=== PATIENT | female | born 1940 | race Caucasian/White ===

== ENCOUNTER → 2016-09-17 | Outpatient (CLI) | payer OTHER, MEDICARE | LOC: FIMAGING 13:46 | DX: Z12.31 Encounter for screening mammogram for malignant neoplasm of breast (principal); Z80.3 Family history of malignant neoplasm of breast | CPT/HCPCS: G0202 ==

== ENCOUNTER 2017-03-10 20:22 | Inpatient (IN) | payer OTHER, MEDICARE ==
[2017-03-10] MEDS ORDERED: NS 1,000 ML IV ONE ×2 (21:03)
[2017-03-10] MEDS ORDERED: HYDROmorphONE/DILAUDID 1 MG/ML INJ IVP ONE (21:03)
[2017-03-10] MEDS ORDERED: ONDANSETRON 4 MG/2 ML VIAL IVP ONE (21:03)
--- NOTE | 2017-03-10 21:08 | EDPHY ---
H & P Stated Complaint: abd pain vomiting recent travel oo country Time Seen by Provider: 03/10/17 20:51 HPI/ROS: CHIEF COMPLAINT: Abdominal pain and vomiting HISTORY OF PRESENT ILLNESS: The patient is a 77-year-old female who comes to the emergency department complaining of nausea vomiting and abdominal pain primarily epigastric region for the last week. She spent December in [place] and took antimalarial medications. She spent a week in January in [place]. She has been back now for 3 weeks. She has not had a fever. No diarrhea. She cannot remember when she last passed gas but her last bowel movement was 3 days ago. No history of abdominal surgeries. She does not feel bloated. She does feel slightly lightheaded no chest pain or shortness of breath. She has seen her primary 3 times this week. She took Zofran this afternoon with minimal improvement. She had initially been placed on Pepcid with no improvement. No blood in her vomit. REVIEW OF SYSTEMS: Constitutional: denies: chills, fever, recent illness, recent injury EENTM: denies: blurred vision, double vision, nose congestion Respiratory: denies: cough, shortness of breath Cardiac: denies: chest pain, irregular heart rate, lightheadedness, palpitations Gastrointestinal/Abdominal: See HPI Genitourinary: denies: dysuria, frequency, hematuria, pain Musculoskeletal: denies: joint pain, muscle pain Skin: denies: lesions, rash, jaundice, bruising Neurological: denies: headache, numbness, paresthesia, tingling, dizziness, weakness Hematologic/Lymphatic: denies: blood clots, easy bleeding, easy bruising Immunologic/allergic: denies: HIV/AIDS, transplant EXAM: GENERAL: Well-appearing, well-nourished and in no acute distress. HEAD: Atraumatic, normocephalic. EYES: Pupils equal round and reactive to light, extraocular movements intact, sclera anicteric, conjunctiva are normal. ENT: TMs normal, nares patent, oropharynx clear without exudates. Moist mucous membranes. NECK: Normal range of motion, supple without lymphadenopathy or JVD. LUNGS: Breath sounds clear to auscultation bilaterally and equal. No wheezes rales or rhonchi. HEART: Regular rate and rhythm without murmurs, rubs or gallops. ABDOMEN: No acute tenderness and a palpable pulsations of her aorta. BACK: No CVA tenderness, no spinal tenderness, step-offs or deformities EXTREMITIES: Normal range of motion, no pitting or edema. No clubbing or cyanosis. NEUROLOGICAL: Cranial nerves II through XII grossly intact. Normal speech, normal gait. 5/5 strength, normal movement in all extremities, normal sensation PSYCH: Normal mood, normal affect. SKIN: Warm, dry, normal turgor, no visible rashes or lesions. Source: Patient Exam Limitations: No limitations - Personal History Current Tetanus/Diphtheria Vaccine: Yes Current Tetanus Diphtheria and Acellular Pertussis (TDAP): Yes Tetanus Vaccine Date: <10 YRS - Medical/Surgical History Hx Asthma: No Hx Chronic Respiratory Disease: No Hx Diabetes: No Hx Cardiac Disease: No Hx Renal Disease: No Hx Cirrhosis: No Hx Alcoholism: No Hx HIV/AIDS: No Hx Splenectomy or Spleen Trauma: No Other PMH: previous CHI 5 yrs ago - Family History Significant Family History: No pertinent family hx - Social History Smoking Status: Never smoked Alcohol Use: Sober Drug Use: None Constitutional: Initial Vital Signs Temperature (C) 36.8 C 03/10/17 20:35 Heart Rate 65 03/10/17 20:35 Respiratory Rate 18 03/10/17 20:35 Blood Pressure 179/84 H 03/10/17 20:35 O2 Sat (%) 95 03/10/17 20:35 O2 Delivery Mode Nasal Cannula,Bag Valve Mask O2 (L/minute) 2 Allergies/Adverse Reactions: No Allergies [NKDA] Allergy (Verified 01/17/13 14:12) SEASONAL Allergy (Intermediate, Uncoded 01/17/13 14:18) SNEEZY, ITCHY EYES, Home Medications: Medication Instructions Recorded Aspirin [Aspirin 81mg (*)] 81 mg PO HS 12/05/13 Losartan Potassium [Cozaar 50 mg 50 mg PO DAILY 03/10/17 (*)] Omeprazole [Prilosec 20 mg] 20 mg PO DAILY 03/10/17 Estradiol/Norethindrone Acet 1 each TD Q3D 03/11/17 [Combipatch 0.05-0.14 mg Ptch] Ondansetron Odt [Zofran Odt 4 mg 4 mg PO DAILY PRN 03/11/17 (*)] Medical Decision Making - Diagnostics Imaging Results: Imaging Impressions Chest X-Ray 03/10/17 23:29 Impression: Status post placement of a right IJ central venous catheter terminating over the distal SVC, with no evidence of postprocedure pneumothorax. Procedures: Study: Limited bedside Ultrasound of the: Aorta Indication: Abdominal pain with palpable pulsation Results: US scan of the aorta was obtained. The results of the study are negative for aneurysm. The study was performed and read by the co Procedure: Ultrasound guidance: Using the linear probe covered in a sterile sheath, a short axis of the vein was obtained. The vein was completely compressible and was identified as separate from the adjacent non-compressible arterial structure. Under real-time guidance, the introducer needle was observed up to the vein, and then punctured it. These images were saved on the database. Central line placement: The indication for the procedure was potassium repletion. After verbal informed consent from patient; the risks were explained including bleeding, infection, and collapsed lung. Maximal sterile barrier technique was uses including cap, gown, sterile gloves, large sheet, hand washing and chlorhexidine prep. The area anesthetized with 1% lidocaine. The right IJ was punctured with a 19 gauge finder needle, then a wire introducer was placed, a triple-lumen was placed using Seldinger technique. There were no complications. Blood return low pressure, dark blood. The patient tolerated procedure well. CXR results: Good placement as interpreted by myself. Radiologist interpretation is pending. The procedure was performed by myself. ED Course/Re-evaluation: The patient is hypokalemic and hyponatremic. I will treat her with potassium and order an EKG. We will hold any more fluids. She received a L on arrival. 10:20 p.m. repeat I-STAT potassium is 2.0. I do not know if this is reliable. We will immediately repeat a new BMP especially considering the patient's hyponatremia and L of fluids given. Will admit to the ICU. I spoke with Dr. Bedolla requests that we consult renal and attempt to have a PICC line placed. 10:45 p.m. I discussed the case with Nephrology Dr. Gonzalez. She will page the hospitalist and discussed treatment plan with them. Repeat BMP shows decreased potassium and slightly increased sodium. I will place a central line for potassium repletion. 10:55 p.m. I discussed the case with Leatha Bedoya who will admit the patient primarily and would like to Dr. Bedolla. 11:[address] Bedoya is here evaluating the patient and nephrology is on the way. Critical Care Time: Critical care time spent by me, Dr. Miles exclusive with this patient was 35 minutes, exclusive of the PA time exclusive of procedures. The organ system that was at risk was cardiovascular and I gave IV fluids, consultation, workup and central line placement to prevent worsening of the patient's condition - Data Points Laboratory Results: Laboratory Results 03/10/17 21:08 03/10/17 22:15 Medications Given: Losartan Potassium (Cozaar) 25 mg PO DAILY SOPHIA Stop: 09/07/17 11:29 Last Admin: 03/11/17 12:31 Dose: 25 mg Ondansetron HCl (Zofran Odt) 4 mg PO Q4HRS PRN PRN Reason: Nausea/Vomiting, Use 1st Stop: 09/07/17 00:09 Last Admin: 03/11/17 09:53 Dose: 4 mg Discontinued Medications Hydromorphone HCl (Dilaudid) 1 mg IVP EDNOW ONE Stop: 03/10/17 21:04 Last Admin: 03/10/17 21:15 Dose: 1 mg Sodium Chloride (Ns) 1,000 mls @ 0 mls/hr IV EDNOW ONE; Wide Open PRN Reason: Protocol Stop: 03/10/17 21:04 Last Admin: 03/10/17 21:11 Dose: 1,000 mls Sodium Chloride (Ns) 1,000 mls @ 0 mls/hr IV EDNOW ONE; Wide Open PRN Reason: Protocol Stop: 03/10/17 21:04 Last Admin: 03/10/17 22:05 Dose: 1,000 mls Potassium Chloride (Potassium Cl 10 Meq (Premix)) 100 mls @ 100 mls/hr IV EDNOW ONE Stop: 03/10/17 22:48 Last Admin: 03/10/17 22:10 Dose: 100 mls Potassium Chloride (Potassium Cl 20 Meq (Premix)) 50 mls @ 25 mls/hr IV EDNOW ONE Stop: 03/11/17 01:29 Last Admin: 03/10/17 23:44 Dose: 50 mls Potassium Chloride (Potassium Cl 10 Meq (Premix)) 50 mls @ 50 mls/hr IV ONCE ONE Stop: 03/11/17 02:44 Last Admin: 03/11/17 01:55 Dose: 50 mls Magnesium Sulfate (Magnesium Sulf 2 Gm (Premix)) 50 mls @ 50 mls/hr IV ONCE ONE Stop: 03/11/17 03:29 Last Admin: 03/11/17 02:23 Dose: 50 mls Potassium Chloride (Potassium Cl 10 Meq (Premix)) 50 mls @ 50 mls/hr IV ONCE ONE Stop: 03/11/17 04:14 Last Admin: 03/11/17 03:15 Dose: 50 mls Potassium Chloride (Potassium Cl 10 Meq (Premix)) 50 mls @ 50 mls/hr IV ONCE ONE Stop: 03/11/17 05:59 Last Admin: 03/11/17 04:51 Dose: 50 mls Desmopressin Acetate 2 mcg/ (Sodium Chloride) 50.5 mls @ 100 mls/hr IV ONCE ONE Stop: 03/11/17 07:46 Last Admin: 03/11/17 08:28 Dose: 50.5 mls Potassium Chloride (Potassium Cl 10 Meq (Premix)) 50 mls @ 50 mls/hr IV ONCE ONE Stop: 03/11/17 10:59 Last Admin: 03/11/17 08:45 Dose: 50 mls Lorazepam (Ativan) 0.5 mg PO ONCE ONE Stop: 03/11/17 04:16 Last Admin: 03/11/17 04:14 Dose: 0.5 mg Metoclopramide HCl (Reglan Injection) 10 mg IVP EDNOW ONE Stop: 03/10/17 21:51 Last Admin: 03/10/17 22:12 Dose: 10 mg Ondansetron HCl (Zofran) 8 mg IVP EDNOW ONE Stop: 03/10/17 21:04 Last Admin: 03/10/17 21:15 Dose: 8 mg Potassium Chloride (Klor-Con) 40 meq PO ONCE ONE Stop: 03/11/17 10:16 Last Admin: 03/11/17 10:42 Dose: 40 meq Potassium Chloride (Klor-Con) 40 meq PO ONCE ONE Stop: 03/11/17 14:01 Last Admin: 03/11/17 14:13 Dose: 40 meq Departure - Departure Disposition: [facility] Inpatient Acute Clinical Impression: Hyponatremia, Hypokalemia Condition: Critical
[2017-03-10 21:31] LABS: ALANINE AMINOTRANSFERASE 41 IU/L (9-52); ALBUMIN 4.1 g/dL (3.5-5.0); ALKALINE PHOSPHATASE 57 IU/L (38-126); ANION GAP 10 mEq/L (8-16); ASPARTATE AMINOTRANSFERASE 43 IU/L (14-46); BILIRUBIN,TOTAL 1.4 mg/dL (0.1-1.4); BILIRUBIN-CONJUGATED 0.1 mg/dL (0.0-0.5); BILIRUBIN-UNCONJUGATED 1.3 mg/dL (0.0-1.1); CALCIUM 9.2 mg/dL (8.5-10.4); CARBON DIOXIDE 28 mEq/l (22-31); CHLORIDE 64 mEq/L (97-110); CREATININE 0.5 mg/dL (0.6-1.0); GLOMERULAR FILTRATION RATE > 60; GLUCOSE 118 mg/dL (70-100); TOTAL PROTEIN 6.4 g/dL (6.3-8.2)
[2017-03-10 21:34] LABS: POTASSIUM 2.4 mEq/L (3.5-5.2); SODIUM 102 mEq/L (134-144)
[2017-03-10] MEDS ORDERED: IOPAMIDOL (ISOVUE-300) 100 ML BTL ONE (21:43)
[2017-03-10] MEDS ORDERED: POTASSIUM Cl (KCl) 100 ML IV ONE (21:49)
[2017-03-10] MEDS ORDERED: METOCLOPRAMIDE 10 MG/2 ML VIAL IVP ONE (21:50)
--- NOTE | 2017-03-10 22:03 | CPEKG ---
Heart Rate: 59 RR Interval: 1017 P-R Interval: 196 QRSD Interval: 106 QT Interval: 456 QTC Interval: 452 P [place]: 70 QRS [place]: 23 T Wave [place]: 39 EKG Severity - ABNORMAL ECG - EKG Impression: SINUS RHYTHM EKG Impression: NONSPECIFIC T ABNORMALITIES, LATERAL LEADS Electronically Signed By: James Forrester 11-Mar-2017 12:22:44
[2017-03-10 22:29] LABS: % IMMATURE GRANULYOCYTES 0.6 % (0.0-1.1); ABSOLUTE IMMATURE GRANULOCYTES 0.03 10^3/uL (0.00-0.10); ADD DIFF? NO; HEMATOCRIT 32.9 % (38.0-47.0); HEMOGLOBIN 12.3 g/dL (12.6-16.3); MEAN CELL HEMOGLOBIN 30.3 pg (27.9-34.1); MEAN CELL HEMOGLOBIN CONCENTR. 37.4 g/dL (32.4-36.7); MEAN PLATELET VOLUME 10.5 fL (8.7-11.7); PLATELET COUNT 222 10^3/uL (150-400); RED BLOOD CELL COUNT 4.06 10^6/uL (4.18-5.33)
[2017-03-10 22:32] LABS: ADD MORPH? NO; ADD SCAN? NO
[2017-03-10 22:44] LABS: ANION GAP 11 mEq/L (8-16); CALCIUM 7.8 mg/dL (8.5-10.4); CARBON DIOXIDE 24 mEq/l (22-31); CHLORIDE 70 mEq/L (97-110); CREATININE 0.5 mg/dL (0.6-1.0); GLOMERULAR FILTRATION RATE > 60; GLUCOSE 126 mg/dL (70-100)
[2017-03-10 22:47] LABS: SODIUM 105 mEq/L (134-144)
[2017-03-10] MEDS ORDERED: POTASSIUM Cl (KCl) 50 ML IV ONE (23:30)
--- NOTE | 2017-03-10 23:55 | PDCONSULT ---
Operator Cavity Pump Note: CHIEF COMPLAINT: Nausea and vomiting HISTORY OF PRESENT ILLNESS: The patient is a 77-year-old female with a known h/ o HTN who presented to the ED earlier this evening complaining of nausea and vomiting x 1 week. Per her PCP she recently was placed on chlorthalidone which was switched to HCTZ on 03/07. In addition, she traveled to [place] in January, however, she returned over 3 weeks ago. She denies fever, diarrhea, shortness of breath, or confusion. She has taken Zofran with no improvement. In the ED she was given 1L NS prior to transfer to the floor. present at bedside, states she did not take her diuretic today. PMH: HTN, GERD Past Surgical History: Total knee replacement, parathyroid removal Social History: Non-smoker, no ETOH or drug abuse Family History: Non-contributory NKDA REVIEW OF SYSTEMS: Negative 10 point review except as above. Medications: Cozaar, ASA, Pepcid Temp Pulse Resp BP Pulse Ox 34.9 C L 68 188 H 146/86 H 100 03/10/17 23:30 03/10/17 23:30 03/10/17 23:30 03/10/17 23:30 03/10/17 23:30 O2 (L/minute) 5 Physical Exam: GEN: NAD, A+Ox3, pale HEENT: Dry MM, EOMI Neck: No thyromegaly CV: RRR, no murmurs or rubs LUNGS: CTA b/l, no wheezing ABD: Soft, NT, ND, no guarding, +BS EXT: No edema, pulses intact NEURO: Non-focal, cooperative, did not observe gait WBC 4.65 10^3/uL (3.80-9.50) 03/10/17 21:08 RBC 4.06 10^6/uL (4.18-5.33) L 03/10/17 21:08 Hgb 12.3 g/dL (12.6-16.3) L 03/10/17 21:08 POC Hgb 12.9 gm/dL (12.6-16.3) 03/10/17 22:11 Hct 32.9 % (38.0-47.0) L 03/10/17 21:08 POC Hct 38 % (38-47) 03/10/17 22:11 MCV 81.0 fL (81.5-99.8) L 03/10/17 21:08 MCH 30.3 pg (27.9-34.1) 03/10/17 21:08 MCHC 37.4 g/dL (32.4-36.7) H 03/10/17 21:08 RDW 11.0 % (11.5-15.2) L 03/10/17 21:08 Plt Count 222 10^3/uL (150-400) 03/10/17 21:08 MPV 10.5 fL (8.7-11.7) 03/10/17 21:08 Neut % (Auto) 64.8 % (39.3-74.2) 03/10/17 21:08 Lymph % (Auto) 22.8 % (15.0-45.0) 03/10/17 21:08 [place] % (Auto) 10.5 % (4.5-13.0) 03/10/17 21:08 Eos % (Auto) 0.9 % (0.6-7.6) 03/10/17 21:08 Baso % (Auto) 0.4 % (0.3-1.7) 03/10/17 21:08 Nucleat RBC Rel Count 0.0 % (0.0-0.2) 03/10/17 21:08 Absolute Neuts (auto) 3.01 10^3/uL (1.70-6.50) 03/10/17 21:08 Absolute Lymphs (auto) 1.06 10^3/uL (1.00-3.00) 03/10/17 21:08 Absolute Monos (auto) 0.49 10^3/uL (0.30-0.80) 03/10/17 21:08 Absolute Eos (auto) 0.04 10^3/uL (0.03-0.40) 03/10/17 21:08 Absolute Basos (auto) 0.02 10^3/uL (0.02-0.10) 03/10/17 21:08 Absolute Nucleated RBC 0.00 10^3/uL (0-0.01) 03/10/17 21:08 Immature Gran % 0.6 % (0.0-1.1) 03/10/17 21:08 Immature Gran # 0.03 10^3/uL (0.00-0.10) 03/10/17 21:08 POC Sodium 111 mEq/L (134-144) L* 03/10/17 22:11 Sodium 105 mEq/L (134-144) L* 03/10/17 22:15 POC Potassium < 2.0 mEq/L (3.3-5.0) L* 03/10/17 22:11 Potassium 2.0 mEq/L (3.3-5.0) L* 03/10/17 22:15 POC Chloride 70 mEq/L (97-110) L 03/10/17 22:11 Chloride 70 mEq/L (97-110) L 03/10/17 22:15 Carbon Dioxide 24 mEq/l (22-31) 03/10/17 22:15 Anion Gap 11 mEq/L (8-16) 03/10/17 22:15 POC BUN 4 mg/dL (7-23) L 03/10/17 22:11 BUN 6 mg/dL (7-23) L 03/10/17 22:15 Creatinine 0.5 mg/dL (0.6-1.0) L 03/10/17 22:15 POC Creatinine 0.5 mg/dL (0.6-1.0) L 03/10/17 22:11 Estimated GFR > 60 03/10/17 22:15 Glucose 126 mg/dL (70-100) H 03/10/17 22:15 POC Glucose 135 mg/dL (70-100) H 03/10/17 22:11 Calcium 7.8 mg/dL (8.5-10.4) L D 03/10/17 22:15 Total Bilirubin 1.4 mg/dL (0.1-1.4) 03/10/17 21:08 Conjugated Bilirubin 0.1 mg/dL (0.0-0.5) 03/10/17 21:08 Unconjugated Bilirubin 1.3 mg/dL (0.0-1.1) H 03/10/17 21:08 AST 43 IU/L (14-46) 03/10/17 21:08 ALT 41 IU/L (9-52) 03/10/17 21:08 Alkaline Phosphatase 57 IU/L (38-126) 03/10/17 21:08 Total Protein 6.4 g/dL (6.3-8.2) 03/10/17 21:08 Albumin 4.1 g/dL (3.5-5.0) 03/10/17 21:08 Lipase 171 IU/L (23-300) 03/10/17 21:08 Assessment/Plan: The patient is a 77 y/o F with a known h/o HTN treated with a recently prescribed thiazide diuretic who presents with N/V x 1 week found to be hyponatremic to 102mg/dL with severe hypokalemia. Etiology is unclear and appears to be dry on exam and more likely hypovolemic given low K and alkalosis , however, medication may have caused SIADH. It appears that sodium did improve to 105mg/dL with 1L NS. Hyponatremia: -hold intervention until urine studies available, ordered STAT -place winn, james I/O's -q2h BMP with Ling, [place], Uosm -await serum osm however suspect hypoosmolar -hold thiazide diuretic -if SIADH, will send TSH -goal Na in 24h 110-112 Hypokalemia -will review EKG for U waves -currently not tolerating po intake -aggressive replacement of K+ IV, central line placed -magnesium sent, will need repletion also Vomiting/nausea -unclear if 2/2 to hyponatremia or viral gastroenteritis -zofran prn HTN -hold cozaar -give hydralazine prn SBP>160 Consult appreciated, please contact if further issues by contacting the [facility] answering service at #[phone]. Russell Gonzalez,
[2017-03-11] MEDS ORDERED: ONDANSETRON 4 MG/2 ML VIAL IVP PRN (00:10)
[2017-03-11] MEDS ORDERED: ONDANSETRON DISINTEGRATING 4 MG TAB PO PRN (00:10)
[2017-03-11] MEDS ORDERED: ACETAMINOPHEN 325 MG TAB PO PRN (00:10)
[2017-03-11] MEDS ORDERED: hydrALAZINE 20 MG/ML VIAL IVP PRN (00:12)
[2017-03-11 00:15] LABS: MAGNESIUM 1.5 mg/dL (1.6-2.3)
--- NOTE | 2017-03-11 00:40 | SOAPPROG ---
SOAP Progress Note Assessment/Plan: Assessment: Plan: 03/11/17 00:54 Hyponatremia: Has received 1L NS with mild improvement in Na to 105. Currently awaiting urinary electrolytes prior to further intervention. Etiology possibly a combination of diuretic use, poor intake, vomiting. Appreciate nephrology input. Hypokalemia: EKG ok. Awaiting Mg level. Will likely need to replace both. Hypertension: losartan held by nephrology. On prn hydralazine. DVT prophylaxis: enoxaparin 30mg sq daily 03/11/17 00:58 Subjective: 77 yo woman with hx hypertension presented to ED earlier this evening for dizziness, nausea, vomiting. Vomited about 7-8 times today, fairly small amounts. Had spoken to our office earlier today and was given Zofran but didn't help. She kept feeling poorly so came in for evaluation. Initial evaluation showed Na 102 and K 2.4. Creatinine 0.5. Per her and pt, she hasn't felt well for 2-3 months, complaining of abdominal pain, dizziness, lightheadedness. She was started on Prilosec in late January without improvement in symptoms. Na on 02/21/17 was 135, K 4.2. She was noted to be hypertensive, so her losartan was increased from 25mg to 50mg daily. She was seen in f/u on , and chlorthalidone 25mg added to regimen. She was seen again on 03/07/17, not feeling well after starting chlorthalidone. This was stopped and she was started on hctz 12.5mg. This was stopped yesterday. Per her , she has also been vomited at least once daily since 03/07/17. Volume has been small, associated with eating or drinking. She hasn't been eating or drinking much as a result. She has not had fever, chills, diarrhea. She was in [place] for 3 weeks and felt well during that trip. She went to [place] after that for a week, returning on 02/14/17. Shortly after that she began to feel less well. She has had some confusion, her brain not thinking right. In the ED, she was given 1L NS and K. POC Na was 111 subsequently, and K dropped to <2. On subsequent BMP, Na was 105, and K 2. A central line was placed for potassium replacement. Abdominal US done due to tenderness on palpation to r/o aortic aneurysm and was negative. CT abdomen/pelvis also done--no report. She has been seen by nephrology. Objective: Vital Signs Temp Pulse Resp BP Pulse Ox 36.6 C 66 16 153/74 H 98 03/11/17 00:21 03/11/17 00:21 03/11/17 00:21 03/11/17 00:21 03/11/17 00:21 03/09/17 03/10/17 03/11/17 05:59 05:59 05:59 Intake Total 1999 Balance 1999 General: sleepy but arouses easily, answers questions appropriately HEENT: PERRL, EOMI. Neck: no masses, adenopathy Lungs: clear bilaterally Cardiovascular: mildly irregular rhythm without murmur. Sinus arrhythmia on monitor Abdomen: +bowel sounds, soft, NT. No hepatosplenomegaly, masses Extremities: no edema Neurologic: moving all extremities ICD10 Worksheet Patient Problems: Problems Problem Status Onset Hypokalemia Acute Hyponatremia Acute
[2017-03-11 01:11] LABS: RANDOM URINE POTASSIUM 43.7 mEq/L (0.5-35.0)
[2017-03-11 01:32] LABS: ANION GAP 10 mEq/L (8-16); CALCIUM 8.1 mg/dL (8.5-10.4); CARBON DIOXIDE 27 mEq/l (22-31); CHLORIDE 70 mEq/L (97-110); CREATININE 0.5 mg/dL (0.6-1.0); GLOMERULAR FILTRATION RATE > 60; GLUCOSE 126 mg/dL (70-100)
[2017-03-11 01:39] LABS: POTASSIUM 2.7 mEq/L (3.5-5.2); SODIUM 107 mEq/L (134-144)
[2017-03-11] MEDS ORDERED: POTASSIUM Cl (KCl) 50 ML IV ONE ×4 (01:45→10:00)
[2017-03-11 01:57] LABS: COLOR YELLOW; LEUKOCYTE ESTERASE,URINE NEGATIVE (NEGATIVE); NITRITE,URINE NEGATIVE (NEGATIVE)
--- NOTE | 2017-03-11 02:19 | GHP ---
[f rep st] HISTORY AND PHYSICAL DATE OF ADMISSION: 03/10/2017 HISTORY OF PRESENT ILLNESS: The patient is a 77-year-old woman with a history of hypertension, who presented to the emergency department earlier this evening for complaints of dizziness, nausea, and vomiting. She has vomited about 7 or 8 times today, fairly small amounts. She had spoken to our office earlier today and was given Zofran, but this did not help. She continued to feel poorly , so came in for evaluation. Her initial lab work showed a sodium of 102 and a potassium of 2.4. Creatinine was 0.5. Per her and the patient, she has not actually felt well for the last 2-3 months complaining of abdominal pain , dizziness, and lightheadedness. She was started on Prilosec in late January due to the abdominal pain, but had no improvement in her symptoms. On January, her sodium was 135, potassium 4.2. She was noted to be hypertensive at that visit, so her losartan was increased from 25 mg to 50 mg daily. She was seen in followup on 03/01/2017, and chlorthalidone 25 mg daily was added to her regimen. She was seen again on March 07, 2017, not feeling well since starting the chlorthalidone. This was stopped, and she was started on hydrochlorothiazide 12.5 mg. This was discontinued yesterday. Per her , she has also vomited at least once daily since 03/07/2017. The volume has been small, typically associated with eating or drinking. She has not been eating or drinking much as a result. She has not had any fever, chills, or diarrhea. She was in [place] for 3 weeks in December and January, and felt well during that trip. She then went to [place] after returning from [place] for a week and returned on February 14, 2017. Shortly after that, she began to feel less well. She has felt some confusion in that her brain is not thinking right. EMERGENCY DEPARTMENT COURSE: She was given 1 L of normal saline, as well as potassium. POC sodium was 111, subsequent to the saline, potassium dropped to less than 2. On subsequent basic metabolic panel, sodium was 105 and potassium 2. A central line was placed for potassium replacement. Abdominal ultrasound was done due to tenderness on palpation to rule out an aortic aneurysm and was negative. CT of the abdomen and pelvis were also done, but the report is not available. She has been seen by Nephrology. PAST MEDICAL HISTORY: Significant for traumatic brain injury, hyperparathyroidism, hypertension, and Achilles tendinitis. MEDICATIONS: Hydrochlorothiazide 12.5 mg daily, tramadol 50 mg every 6 hours as needed, Prilosec 20 mg daily, Lorazepam 1 mg 1/2 tablet at bedtime as needed , DHEA 25 mg daily, vitamin D 6000 international units daily, aspirin 81 mg daily, Tylenol 500 mg 2 tablets as needed every 6 hours, ibuprofen 400 mg as needed every 6 hours, Combi patch 0.05/0.14 mg per day applied twice weekly, losartan 50 mg daily. ALLERGIES: Lisinopril causes a cough. Augmentin, nausea and vomiting. PAST SURGICAL HISTORY: Tonsillectomy in 194, right knee surgery x2, parathyroidectomy 2005, uterine ablation and polypectomy 01/06, and bilateral cataract surgeries. FAMILY HISTORY: Her father at age 40 in an MVA and was an alcoholic. Mother at 96 with dementia and heart disease. Her paternal grandmother from a stroke. Her maternal grandmother had mental illness. SOCIAL HISTORY: She is a nonsmoker and a nondrinker. She has 1 son who is living. She lives with her . REVIEW OF SYSTEMS: GENERAL: She denies any fever or chills. HEENT: She has not had any sore throat, runny nose. RESPIRATORY: No cough or shortness of breath, although states that she did have a little bit of a cough today. CARDIOVASCULAR: She has not had any chest pain, shortness of breath, or edema. GI: She has had abdominal pain over the last 2-3 months, nausea and vomiting as noted above, no diarrhea, and reports that she has actually been somewhat constipated. : No dysuria, hematuria. NEUROLOGIC: No headache. No numbness or tingling. Her reports that she has felt dizzy and lightheaded for the last couple of months and has been somewhat confused over the last week and has not been taking her medications correctly. He has actually needed to help her with that. He has noticed that her gait is unsteady, but she has not fallen. MUSCULOSKELETAL: She has pain from her Achilles tendinitis. PHYSICAL EXAMINATION: VITAL SIGNS: Temperature 36.6, pulse 66, respirations 16 , blood pressure 153/74, oxygen saturation 98% on room air. GENERAL: She is lying in bed, comfortable. She is sleepy, but arouses easily and answers questions appropriately. HEENT: Pupils are equal, round, reactive to light. Extraocular movements are intact. Sclerae are anicteric. Conjunctivae without injection. Hearing is normal. NECK: Without masses or adenopathy. Supple. LUNGS: Clear bilaterally. CARDIOVASCULAR: Rhythm is mildly irregular without murmur. Sinus arrhythmia is noted on monitor. ABDOMEN: Soft with normal bowel sounds and nontender. No hepatosplenomegaly or masses. EXTREMITIES: No edema. NEUROLOGIC: She is moving all of her extremities and as noted above is generally appropriate and answers questions appropriately. LABORATORY DATA: Initially on arrival, sodium was 102, potassium 2.4, chloride 6.4, bicarb 28, BUN 7, creatinine 0.5, glucose 118, calcium 9.2. LFTs normal except for mildly elevated unconjugated bilirubin of 1.3. White count was 4.65 , hemoglobin 12.6, hematocrit 32.9. EKG showed a sinus rhythm with a sinus arrhythmia and nonspecific T-wave abnormalities. Heart rate was 59. ASSESSMENT AND PLAN: 1. Hyponatremia. The patient has received 1 L normal saline with mild improvement in sodium to 105. She has been seen by Nephrology and currently awaiting urinary electrolytes prior to further intervention. Etiology possibly a combination of diuretic use, poor oral intake, and vomiting. Appreciate Nephrology input. Target sodium over the next 24 hours 110. 2. Hypokalemia. EKG is somewhat irregular, but otherwise okay. Awaiting magnesium level. Will likely need to continue to replace both potassium and magnesium. 3. Hypertension. Losartan held by Nephrology. Currently on p.r.n. hydralazine. 4. Deep venous thrombosis prophylaxis. Enoxaparin 30 mg subcu daily along with NASEEM vargas. /[id number]/MODL MTDD
[2017-03-11] MEDS ORDERED: MAGNESIUM SULF 2 GM/WATER 50 ML IV ONE (02:30)
[2017-03-11 02:46] LABS: ANION GAP 9 mEq/L (8-16); CARBON DIOXIDE 28 mEq/l (22-31); CHLORIDE 70 mEq/L (97-110); CREATININE 0.5 mg/dL (0.6-1.0); GLOMERULAR FILTRATION RATE > 60; GLUCOSE 116 mg/dL (70-100)
[2017-03-11 02:49] LABS: POTASSIUM 2.5 mEq/L (3.5-5.2); SODIUM 107 mEq/L (134-144)
[2017-03-11] MEDS ORDERED: LORazepam 0.5 MG TAB PO ONE (04:15)
[2017-03-11 04:38] LABS: ANION GAP 11 mEq/L (8-16); CALCIUM 8.2 mg/dL (8.5-10.4); CARBON DIOXIDE 27 mEq/l (22-31); CHLORIDE 70 mEq/L (97-110); CREATININE 0.5 mg/dL (0.6-1.0); GLOMERULAR FILTRATION RATE > 60; GLUCOSE 118 mg/dL (70-100); POTASSIUM 2.8 mEq/L (3.5-5.2)
[2017-03-11 04:41] LABS: SODIUM 108 mEq/L (134-144)
[2017-03-11 06:43] LABS: ANION GAP 8 mEq/L (8-16); CALCIUM 8.1 mg/dL (8.5-10.4); CARBON DIOXIDE 28 mEq/l (22-31); CHLORIDE 72 mEq/L (97-110); CREATININE 0.5 mg/dL (0.6-1.0); GLOMERULAR FILTRATION RATE > 60; GLUCOSE 106 mg/dL (70-100); POTASSIUM 3.1 mEq/L (3.5-5.2)
[2017-03-11 06:48] LABS: SODIUM 108 mEq/L (134-144)
[2017-03-11] MEDS ORDERED: DESMOPRESSIN ACETATE 2 MCG in NS 50 ML IV ONE (07:16)
[2017-03-11] MEDS ORDERED: ENOXAPARIN 30 MG/0.3 ML SYR SC SCH (09:00)
[2017-03-11 09:04] LABS: ANION GAP 10 mEq/L (8-16); CALCIUM 8.3 mg/dL (8.5-10.4); CARBON DIOXIDE 27 mEq/l (22-31); CHLORIDE 72 mEq/L (97-110); CREATININE 0.5 mg/dL (0.6-1.0); GLOMERULAR FILTRATION RATE > 60; GLUCOSE 93 mg/dL (70-100); POTASSIUM 2.8 mEq/L (3.5-5.2)
[2017-03-11] MEDS ORDERED: POTASSIUM CL 20 MEQ TAB PO ONE ×3 (10:15→21:30)
[2017-03-11 10:23] LABS: ANION GAP 8 mEq/L (8-16); CALCIUM 8.4 mg/dL (8.5-10.4); CARBON DIOXIDE 28 mEq/l (22-31); CHLORIDE 71 mEq/L (97-110); CREATININE 0.5 mg/dL (0.6-1.0); GLOMERULAR FILTRATION RATE > 60; GLUCOSE 98 mg/dL (70-100); POTASSIUM 2.6 mEq/L (3.5-5.2)
[2017-03-11 10:35] LABS: SODIUM 107 mEq/L (134-144)
--- NOTE | 2017-03-11 11:24 | SOAPPROG ---
SOAP Progress Note Assessment/Plan: Assessment/Plan: Hyponatremia: initial labs looked like SIADH but now urine is starting to look more dilute, seems to be appropriately trying to dilute urine and hold on to sodium. Likely her hyponatremia is caused by thiazide diuretics. Sodium is up to 107 now, goal is for sodium to increase by only 6 in 24 hours (should be 108 by this evening) and then 6 again in the next 24 hours. - Pt got desmopressin this am. - Will continue to monitor sodium q2h. - 1000ml fluid restriction. Hypokalemia: Pt just got another KCl 40meq. - Will continue to monitor q2h and replace as needed - Will restart losartan. HTN: will restart losartan at 25mg daily and continue to monitor. Subjective: No acute events overnight. Pt states that her N/V is better since admission, still a bit confused but no other complaints. Objective: Vital Signs Temp Pulse Resp BP Pulse Ox 37.0 C 62 20 141/60 H 96 03/11/17 09:00 03/11/17 10:00 03/11/17 10:00 03/11/17 10:00 03/11/17 10:00 Laboratory Results 03/11/17 10:00 03/10/17 03/11/17 03/12/17 05:59 05:59 05:59 Intake Total 200 Output Total 1490 Balance -1290 General: alert and oriented, no acute distress Eyes; EOMI, PERRL OP: Clear CV: RRR Resp: nonlabored respirations on NC, CTAB Abd: Soft, NT Ext: no edema BLE Neuro: CN II-XII grossly intact, no asterixis Psych: cooperative, appropriate mood and affect ICD10 Worksheet Patient Problems: Problems Problem Status Onset Hypokalemia Acute Hyponatremia Acute
--- NOTE | 2017-03-11 12:12 | SOAPPROG ---
SOAP Progress Note Assessment/Plan: Assessment: Plan: 03/11/17 00:54 Hyponatremia: Has received 1L NS with mild improvement in Na to 105. Currently awaiting urinary electrolytes prior to further intervention. Etiology possibly a combination of diuretic use, poor intake, vomiting. Appreciate nephrology input. Hypokalemia: EKG ok. Awaiting Mg level. Will likely need to replace both. Hypertension: losartan held by nephrology. On prn hydralazine. DVT prophylaxis: enoxaparin 30mg sq daily 03/11/17 00:58 03/11/17 12:12 Hyponatremia: improving slowly. Appreciate nephology input. Now on fluid restriction. Hypokalemia: replacing Hypertension: losartan resumed by nephrology Abdominal discomfort: better for now. Noted some gastric wall thickening on CT scan. May need to look further at this if she continues to experience nausea when she tries to eat. Has been having some abdominal discomfort for 2-3 months prior to onset of current sx. Anxiety: would like lorazepam available on as needed basis as it helped significantly DVT prophylaxis: continue enoxaparin Subjective: Feeling better this morning. Still a little dizzy, less nausea. Drinking small amounts of water without feeling like she needs to vomit. [place] anxious last night--lorazepam helped. Objective: Vital Signs Temp Pulse Resp BP Pulse Ox 37.0 C 59 L 14 140/62 H 97 03/11/17 12:00 03/11/17 12:00 03/11/17 12:00 03/11/17 12:00 03/11/17 12:00 Laboratory Results 03/11/17 10:00 03/10/17 03/11/17 03/12/17 05:59 05:59 05:59 Intake Total 200 Output Total 1490 Balance -1290 General: tired-appearing but more awake Neck: no masses, adenopathy Lungs: clear Cardiovascular: RRR without murmur Abdomen: +bowel sounds, soft, NT. Extremities: no edema - Pending Discharge Pending Discharge Within 24 Hours: No ICD10 Worksheet Patient Problems: Problems Problem Status Onset Hypokalemia Acute Hyponatremia Acute
[2017-03-11] MEDS: LOSARTAN POTASSIUM 25 MG TAB PO SCH (12:31)
[2017-03-11 12:40] LABS: ANION GAP 10 mEq/L (8-16); CALCIUM 8.2 mg/dL (8.5-10.4); CARBON DIOXIDE 28 mEq/l (22-31); CHLORIDE 71 mEq/L (97-110); CREATININE 0.5 mg/dL (0.6-1.0); GLOMERULAR FILTRATION RATE > 60; GLUCOSE 104 mg/dL (70-100); POTASSIUM 2.8 mEq/L (3.5-5.2)
[2017-03-11 12:42] LABS: SODIUM 109 mEq/L (134-144)
[2017-03-11 14:35] LABS: ANION GAP 8 mEq/L (8-16); CALCIUM 8.4 mg/dL (8.5-10.4); CARBON DIOXIDE 28 mEq/l (22-31); CHLORIDE 71 mEq/L (97-110); CREATININE 0.5 mg/dL (0.6-1.0); GLOMERULAR FILTRATION RATE > 60; GLUCOSE 114 mg/dL (70-100); POTASSIUM 2.9 mEq/L (3.5-5.2)
--- NOTE | 2017-03-11 15:04 | ASMTCASEMG ---
Living Arrangements What is your living Answers: With Spouse arrangement? Who do you live with? Type Of Residence What kind of residence do Answers: House you live in? Discharge Plan Comments Coordination Status Comments Notes: Pt is a 77 y/o female admitted with a hx of hypertension who presented at the ED after complaints of dizziness, nausea, and vomitting. Pt lives at home w/ her . Pts symtoms according to her have been ongoing for the last 3-4 months. Pt has recieved 1L normal saline to bring her sodium to 105 and continuing to with the saline to bring target sodium level to 110. Pt is currently awaiting urinary electrolytes. No therapies ordered at this time. CM to follow. Date Signed: 03/11/2017 03:03 PM Electronically Signed By:BREE Cabello
[2017-03-11 15:23] LABS: SODIUM 107 mEq/L (134-144)
[2017-03-11 16:43] LABS: ANION GAP 8 mEq/L (8-16); CALCIUM 8.2 mg/dL (8.5-10.4); CARBON DIOXIDE 28 mEq/l (22-31); CHLORIDE 72 mEq/L (97-110); CREATININE 0.5 mg/dL (0.6-1.0); GLOMERULAR FILTRATION RATE > 60; GLUCOSE 117 mg/dL (70-100); POTASSIUM 3.1 mEq/L (3.5-5.2)
[2017-03-11 16:52] LABS: SODIUM 108 mEq/L (134-144)
[2017-03-11] MEDS ORDERED: POTASSIUM CL 20 MEQ/15 ML UDCUP PO ONE (18:00)
[2017-03-11] MEDS ORDERED: METOCLOPRAMIDE 10 MG/2 ML VIAL ONE (18:13)
[2017-03-11] MEDS ORDERED: METOCLOPRAMIDE 10 MG/2 ML VIAL IVP PRN (18:14)
[2017-03-11 18:29] LABS: ANION GAP 7 mEq/L (8-16); CALCIUM 8.8 mg/dL (8.5-10.4); CARBON DIOXIDE 27 mEq/l (22-31); CHLORIDE 73 mEq/L (97-110); CREATININE 0.6 mg/dL (0.6-1.0); GLOMERULAR FILTRATION RATE > 60; GLUCOSE 107 mg/dL (70-100); POTASSIUM 4.4 mEq/L (3.5-5.2)
[2017-03-11 18:50] LABS: SODIUM 107 mEq/L (134-144)
[2017-03-11 20:59] LABS: ANION GAP 9 mEq/L (8-16); CALCIUM 8.3 mg/dL (8.5-10.4); CARBON DIOXIDE 25 mEq/l (22-31); CHLORIDE 76 mEq/L (97-110); CREATININE 0.5 mg/dL (0.6-1.0); GLOMERULAR FILTRATION RATE > 60; GLUCOSE 91 mg/dL (70-100); POTASSIUM 3.9 mEq/L (3.5-5.2)
[2017-03-11 21:03] LABS: SODIUM 110 mEq/L (134-144)
[2017-03-11] MEDS ORDERED: DESMOPRESSIN ACETATE 4 MCG/ML INJ IV ONE (21:30)
[2017-03-11] MEDS: ASPIRIN 81 MG CHEWABLE TAB PO SCH (21:39)
[2017-03-11] MEDS: LORazepam 0.5 MG TAB PO PRN (21:39)
[2017-03-11 22:51] LABS: ANION GAP 8 mEq/L (8-16); CALCIUM 8.1 mg/dL (8.5-10.4); CARBON DIOXIDE 25 mEq/l (22-31); CHLORIDE 76 mEq/L (97-110); CREATININE 0.5 mg/dL (0.6-1.0); GLOMERULAR FILTRATION RATE > 60; GLUCOSE 95 mg/dL (70-100); POTASSIUM 3.9 mEq/L (3.5-5.2)
[2017-03-11 22:57] LABS: SODIUM 109 mEq/L (134-144)
[2017-03-12 00:48] LABS: ANION GAP 4 mEq/L (8-16); CALCIUM 8.4 mg/dL (8.5-10.4); CARBON DIOXIDE 27 mEq/l (22-31); CHLORIDE 78 mEq/L (97-110); CREATININE 0.6 mg/dL (0.6-1.0); GLOMERULAR FILTRATION RATE > 60; GLUCOSE 91 mg/dL (70-100)
[2017-03-12 00:50] LABS: SODIUM 109 mEq/L (134-144)
[2017-03-12 02:32] LABS: ANION GAP 8 mEq/L (8-16); CALCIUM 8.1 mg/dL (8.5-10.4); CARBON DIOXIDE 26 mEq/l (22-31); CHLORIDE 78 mEq/L (97-110); CREATININE 0.5 mg/dL (0.6-1.0); GLOMERULAR FILTRATION RATE > 60; GLUCOSE 88 mg/dL (70-100); POTASSIUM 3.7 mEq/L (3.5-5.2)
[2017-03-12 02:37] LABS: SODIUM 112 mEq/L (134-144)
[2017-03-12 05:03] LABS: ANION GAP 8 mEq/L (8-16); CALCIUM 8.2 mg/dL (8.5-10.4); CARBON DIOXIDE 25 mEq/l (22-31); CHLORIDE 79 mEq/L (97-110); CREATININE 0.5 mg/dL (0.6-1.0); GLOMERULAR FILTRATION RATE > 60; GLUCOSE 106 mg/dL (70-100); POTASSIUM 3.6 mEq/L (3.5-5.2)
[2017-03-12 05:18] LABS: SODIUM 112 mEq/L (134-144)
[2017-03-12] MEDS ORDERED: POTASSIUM CL 10 MEQ TAB PO ONE (05:45)
[2017-03-12 06:51] LABS: ANION GAP 7 mEq/L (8-16); CALCIUM 8.2 mg/dL (8.5-10.4); CARBON DIOXIDE 25 mEq/l (22-31); CHLORIDE 79 mEq/L (97-110); CREATININE 0.5 mg/dL (0.6-1.0); GLOMERULAR FILTRATION RATE > 60; GLUCOSE 80 mg/dL (70-100)
[2017-03-12 07:03] LABS: SODIUM 111 mEq/L (134-144)
--- NOTE | 2017-03-12 07:46 | SOAPPROG ---
SOAP Progress Note Assessment/Plan: Assessment: 1. Severe hyponatremia Na correcting appropriately. Given DDAVP last pm. Target in mid teens by later today. She is taking in some food. Other electrolytes ok. Suspect she will do fine once recovered with discontinuation of thiazide. Plan: 03/12/17 07:42 Subjective: Feels better Objective: Vital Signs Temp Pulse Resp BP Pulse Ox 36.6 C 59 L 18 111/55 L 97 03/12/17 04:00 03/12/17 06:00 03/12/17 06:00 03/12/17 06:00 03/12/17 06:00 Laboratory Results 03/12/17 06:05 03/11/17 03/12/17 03/13/17 05:59 05:59 05:59 Intake Total 200 740 Output Total 1490 1540 Balance -1290 -800 Physical Exam - Physical Exam General Appearance: no apparent distress Respiratory: lungs clear Cardiac/Chest: regular rate, rhythm Extremities: pedal edema Neuro/Psych: oriented x 3 ICD10 Worksheet Patient Problems: Problems Problem Status Onset Hypokalemia Acute Hyponatremia Acute
[2017-03-12] MEDS: ENOXAPARIN 40 MG/0.4 ML SYR SC SCH (08:41)
[2017-03-12] MEDS: LOSARTAN POTASSIUM 25 MG TAB PO SCH (08:41)
[2017-03-12 09:02] LABS: ANION GAP 10 mEq/L (8-16); CALCIUM 8.2 mg/dL (8.5-10.4); CARBON DIOXIDE 24 mEq/l (22-31); CHLORIDE 79 mEq/L (97-110); CREATININE 0.6 mg/dL (0.6-1.0); GLOMERULAR FILTRATION RATE > 60; GLUCOSE 98 mg/dL (70-100); POTASSIUM 3.7 mEq/L (3.5-5.2)
[2017-03-12 09:08] LABS: SODIUM 113 mEq/L (134-144)
[2017-03-12] MEDS ORDERED: POTASSIUM CL 20 MEQ TAB PO ONE ×2 (09:30→11:15)
[2017-03-12] MEDS ORDERED: LACTULOSE 20 GM/30 ML UDCUP PO PRN (10:45)
[2017-03-12] MEDS ORDERED: BISACODYL 10 MG SUPP PR PRN (10:45)
[2017-03-12] MEDS ORDERED: MAGNESIUM HYDROXIDE 30 ML UDCUP PO PRN (10:45)
[2017-03-12 10:59] LABS: ANION GAP 8 mEq/L (8-16); CALCIUM 8.2 mg/dL (8.5-10.4); CARBON DIOXIDE 25 mEq/l (22-31); CHLORIDE 79 mEq/L (97-110); CREATININE 0.6 mg/dL (0.6-1.0); GLOMERULAR FILTRATION RATE > 60; GLUCOSE 88 mg/dL (70-100); POTASSIUM 3.9 mEq/L (3.5-5.2)
[2017-03-12 11:03] LABS: SODIUM 112 mEq/L (134-144)
[2017-03-12] MEDS: SENNOSIDES/DOCUSATE SODIUM TAB PO SCH ×2 (11:47→21:16)
[2017-03-12 12:50] LABS: ANION GAP 8 mEq/L (8-16); CARBON DIOXIDE 24 mEq/l (22-31); CHLORIDE 78 mEq/L (97-110); CREATININE 0.5 mg/dL (0.6-1.0); GLOMERULAR FILTRATION RATE > 60; GLUCOSE 90 mg/dL (70-100); SODIUM 110 mEq/L (134-144)
--- NOTE | 2017-03-12 14:11 | PDINTPN ---
Store Manager Progress Note Assessment/Plan: Assessment: Hyponatremia: Likely due to thiazide and NV. Correcting with fluid restriction. Hypokalemia; Corrected. HTN: Well controlled with Losartan. Microcytic anemia. Plan: Check iron studies. Follow Na closely, monitor BP, K+ 03/12/17 14:13 Subjective: Feels a bit better. Appetite good. No N/V. Still feels weak, not walking much. Objective: Vital Signs Temp Pulse Resp BP Pulse Ox 36.6 C 55 L 11 L 150/92 H 96 03/12/17 04:00 03/12/17 12:00 03/12/17 12:00 03/12/17 12:00 03/12/17 12:00 Laboratory Results 03/12/17 12:26 03/11/17 03/12/17 03/13/17 05:59 05:59 05:59 Intake Total 200 740 Output Total 1490 1540 115 Balance -1290 -800 -115 Physical Exam - Physical Exam General Appearance: alert, no apparent distress EENT: normal ENT inspection Neck: normal inspection Respiratory: lungs clear, normal breath sounds Cardiac/Chest: regular rate, rhythm, edema Abdomen: normal bowel sounds, non-tender, soft Skin: normal color, warm/dry Extremities: non-tender Neuro/Psych: alert, normal mood/affect, oriented x 3 ICD10 Worksheet Patient Problems: Problems Problem Status Onset Hypokalemia Acute Hyponatremia Acute
[2017-03-12 14:42] LABS: ANION GAP 9 mEq/L (8-16); CALCIUM 7.8 mg/dL (8.5-10.4); CARBON DIOXIDE 23 mEq/l (22-31); CHLORIDE 79 mEq/L (97-110); CREATININE 0.5 mg/dL (0.6-1.0); GLOMERULAR FILTRATION RATE > 60; GLUCOSE 102 mg/dL (70-100)
--- NOTE | 2017-03-12 14:43 | GCON ---
[f rep st] CONSULTATION PULMONARY/CRITICAL CARE CONSULTATION DATE OF CONSULTATION: 03/11/2017 REFERRING PHYSICIAN: Leatha Bedoya MD REASON FOR REFERRAL: Evaluation and management of hypertension, anemia, and electrolyte abnormalitie s. HISTORY: The patient is a 77-year-old woman with a history of hypertension who was admitted last nig with dizziness, nausea and vomiting. She had multiple episodes throughout the day yesterday that did not improve with Zofran. She had recently had an increase in the losartan dose and had started c hlorthalidone, then changed to a thiazide diuretic just several days before admission. She was found to have severe hyponatremia and hypokalemia, so was given a liter of saline in the emergency departm ent with a slight improvement in her sodium level. She reports that she feels a bit better today, st macario, with no nausea or vomiting. She denies any chest pains or palpitations. PAST MEDICAL HISTORY: 1. History of traumatic brain injury. 2. Hyperparathyroidism. 3. Hypertension. MEDICATIONS: Include HCTZ, tramadol, Prilosec, lorazepam, DHEA, aspirin, Tylenol, ibuprofen, losarta n 50 mg daily. ALLERGIES: Lisinopril, Augmentin. SOCIAL HISTORY: The patient does not drink or smoke. She lives with her . FAMILY HISTORY: Positive for alcohol use. REVIEW OF SYSTEMS: A 10-point review of systems adds nothing to the history of present illness. PHYSICAL EXAMINATION: GENERAL: The patient is awake, alert, and in no acute distress. VITAL SIGNS: Her blood pressure is 132/92, down from systolic blood pressures of 140-179 earlier. H er heart rate is 64, oxygen saturations are 97% on room air. HEENT: Normocephalic and atraumatic. No icterus. NECK: No JVD. Trachea is midline. CHEST: Clear to auscultation. CARDIAC: Regular r ate and rhythm without murmur. ABDOMEN: Soft, nontender. Bowel sounds are present. EXTREMITIES: No clubbing, cyanosis, or edema. LABORATORY: Sodium is 108, up from 102 at admission. Potassium level is 2.9, up from a low of 2.0. An anion gap is 8. Chloride level is 71. Creatinine is 0.5 and a glucose is 114. CBC is remarkabl e for a hemoglobin of 12.3 with an MCV of 81.00. Urine osmolality is 438, up from 217. Urine sodium is 78. A chest x-ray shows a well-placed right IJ catheter. The lungs are normal. There is no pneumothorax . Images reviewed. ASSESSMENT: 1. Hyponatremia. This is likely due to the use of thiazide diuretic as well as the patient's nausea and vomiting. She is being corrected appropriately. 2. Hypokalemia. This is improved with replacement. 3. Microcytic anemia. There is no apparent prior history of this. There is no apparent blood loss. 4. Hypertension. The patient had hypotension initially, but this is improved. RECOMMENDATIONS: 1. Continue sodium correction as per Nephrology. 2. Potassium replacement per potassium protocol. 3. Follow blood pressure to determine if her hypertension returns. Hydralazine could be used p.r.n. 4. Consider ordering iron studies to evaluate microcytic anemia. /[id number]/MODL
[2017-03-12 14:48] LABS: SODIUM 111 mEq/L (134-144)
[2017-03-12 17:09] LABS: ANION GAP 9 mEq/L (8-16); CALCIUM 8.3 mg/dL (8.5-10.4); CARBON DIOXIDE 24 mEq/l (22-31); CHLORIDE 81 mEq/L (97-110); CREATININE 0.5 mg/dL (0.6-1.0); GLOMERULAR FILTRATION RATE > 60; GLUCOSE 90 mg/dL (70-100); POTASSIUM 4.2 mEq/L (3.5-5.2)
[2017-03-12 17:24] LABS: SODIUM 114 mEq/L (134-144)
[2017-03-12 18:52] LABS: ANION GAP 8 mEq/L (8-16); CALCIUM 8.5 mg/dL (8.5-10.4); CARBON DIOXIDE 24 mEq/l (22-31); CHLORIDE 80 mEq/L (97-110); CREATININE 0.6 mg/dL (0.6-1.0); GLOMERULAR FILTRATION RATE > 60; GLUCOSE 116 mg/dL (70-100); POTASSIUM 4.4 mEq/L (3.5-5.2)
[2017-03-12 19:08] LABS: SODIUM 112 mEq/L (134-144)
[2017-03-12 20:23] LABS: SODIUM 109 mEq/L (134-144)
[2017-03-12] MEDS: ASPIRIN 81 MG CHEWABLE TAB PO SCH (21:16)
[2017-03-12] MEDS: LORazepam 0.5 MG TAB PO PRN (21:17)
[2017-03-12 22:28] LABS: ANION GAP 8 mEq/L (8-16); CALCIUM 8.7 mg/dL (8.5-10.4); CARBON DIOXIDE 25 mEq/l (22-31); CHLORIDE 81 mEq/L (97-110); CREATININE 0.6 mg/dL (0.6-1.0); GLOMERULAR FILTRATION RATE > 60; GLUCOSE 84 mg/dL (70-100); POTASSIUM 4.7 mEq/L (3.5-5.2)
[2017-03-12 22:34] LABS: SODIUM 114 mEq/L (134-144)
--- NOTE | 2017-03-12 23:02 | SOAPPROG ---
SOAP Progress Note Assessment/Plan: Assessment:Profound hyponatremia, improving at an ideal pace. Gradually clinically improving. Plan: Continue with slow evangelical of sodium. Continue to monitor for any collateral issues. 03/12/17 23:01 Subjective: No new complaints. Nausea and balance are much better. No chest pain or shortness of breath. Feels comfortable walking. Objective: Vital Signs Temp Pulse Resp BP Pulse Ox 208.0 F H 55 L 16 148/58 H 98 03/12/17 20:00 03/12/17 20:00 03/12/17 20:00 03/12/17 20:00 03/12/17 20:00 Laboratory Results 03/12/17 21:45 03/11/17 03/12/17 03/13/17 05:59 05:59 05:59 Intake Total 200 740 600 Output Total 1490 1540 515 Balance -1290 -800 85 Lungs clear to asc. COR RRR. No edema. ICD10 Worksheet Patient Problems: Problems Problem Status Onset Hypokalemia Acute Hyponatremia Acute
[2017-03-13 00:57] LABS: ANION GAP 5 mEq/L (8-16); CALCIUM 8.7 mg/dL (8.5-10.4); CARBON DIOXIDE 27 mEq/l (22-31); CHLORIDE 82 mEq/L (97-110); CREATININE 0.6 mg/dL (0.6-1.0); GLOMERULAR FILTRATION RATE > 60; GLUCOSE 90 mg/dL (70-100); MAGNESIUM 2.5 mg/dL (1.6-2.3); POTASSIUM 4.5 mEq/L (3.5-5.2)
[2017-03-13 00:59] LABS: SODIUM 114 mEq/L (134-144)
[2017-03-13 03:00] LABS: ANION GAP 5 mEq/L (8-16); CARBON DIOXIDE 27 mEq/l (22-31); CHLORIDE 85 mEq/L (97-110); CREATININE 0.6 mg/dL (0.6-1.0); GLOMERULAR FILTRATION RATE > 60; GLUCOSE 81 mg/dL (70-100); POTASSIUM 4.6 mEq/L (3.5-5.2)
[2017-03-13 03:04] LABS: SODIUM 117 mEq/L (134-144)
[2017-03-13 05:02] LABS: ANION GAP 4 mEq/L (8-16); CALCIUM 8.8 mg/dL (8.5-10.4); CARBON DIOXIDE 25 mEq/l (22-31); CHLORIDE 87 mEq/L (97-110); CREATININE 0.6 mg/dL (0.6-1.0); GLOMERULAR FILTRATION RATE > 60; GLUCOSE 82 mg/dL (70-100); POTASSIUM 4.2 mEq/L (3.5-5.2)
[2017-03-13 05:05] LABS: SODIUM 116 mEq/L (134-144)
[2017-03-13 06:45] LABS: ANION GAP 5 mEq/L (8-16); CALCIUM 8.8 mg/dL (8.5-10.4); CARBON DIOXIDE 25 mEq/l (22-31); CHLORIDE 88 mEq/L (97-110); CREATININE 0.6 mg/dL (0.6-1.0); GLOMERULAR FILTRATION RATE > 60; GLUCOSE 81 mg/dL (70-100); POTASSIUM 4.3 mEq/L (3.5-5.2)
[2017-03-13 06:48] LABS: SODIUM 118 mEq/L (134-144)
[2017-03-13] MEDS: ENOXAPARIN 40 MG/0.4 ML SYR SC SCH (08:26)
[2017-03-13] MEDS: SENNOSIDES/DOCUSATE SODIUM TAB PO SCH ×2 (08:26→21:09)
[2017-03-13] MEDS: POLYETHYLENE GLYCOL 3350 17 GM PKT PO PRN ×2 (08:26→21:09)
[2017-03-13] MEDS: LOSARTAN POTASSIUM 25 MG TAB PO SCH (08:26)
[2017-03-13 09:06] LABS: ANION GAP 7 mEq/L (8-16); CALCIUM 8.9 mg/dL (8.5-10.4); CARBON DIOXIDE 25 mEq/l (22-31); CHLORIDE 89 mEq/L (97-110); CREATININE 0.6 mg/dL (0.6-1.0); GLOMERULAR FILTRATION RATE > 60; GLUCOSE 97 mg/dL (70-100); POTASSIUM 4.2 mEq/L (3.5-5.2); SODIUM 121 mEq/L (134-144)
[2017-03-13] MEDS ORDERED: DESMOPRESSIN ACETATE 2 MCG in NS 50 ML IV ONE (09:26)
[2017-03-13] MEDS ORDERED: DESMOPRESSIN ACETATE 4 MCG/ML INJ IVP ONE (09:45)
[2017-03-13 10:44] LABS: ANION GAP 9 mEq/L (8-16); CALCIUM 8.7 mg/dL (8.5-10.4); CARBON DIOXIDE 24 mEq/l (22-31); CHLORIDE 89 mEq/L (97-110); CREATININE 0.6 mg/dL (0.6-1.0); GLOMERULAR FILTRATION RATE > 60; GLUCOSE 103 mg/dL (70-100); POTASSIUM 3.8 mEq/L (3.5-5.2); SODIUM 122 mEq/L (134-144)
[2017-03-13] MEDS ORDERED: D5W 1,000 ML IV SCH (12:00)
--- NOTE | 2017-03-13 12:45 | SOAPPROG ---
SOAP Progress Note Assessment/Plan: Assessment: 77 yo female admitted w/ severe hyponatremia likely 2/2 thiazide an n/v - -appreciate input of nephrology - sodium slowly being corrected, is much better today w/ Na 122 - feels like a fog has lifted and can think more normally again ! Has been weak and tired, wants to try to ambulate more today. -htn - controlled w/ arb- -dvt proph -lovenox, ambulate -dispo - still needs close monitoring of sodium but much better now, could likely transfer out of ICU tomorrow, home in next 1-2 days likely if all continues as well as it is now. Plan: 03/13/17 12:42 Subjective: Doing well, feels so much better today Objective: Vital Signs Temp Pulse Resp BP Pulse Ox 36.3 C 62 17 97/44 L 97 03/13/17 06:00 03/13/17 10:00 03/13/17 10:00 03/13/17 10:00 03/13/17 10:00 03/12/17 03/13/17 03/14/17 05:59 05:59 05:59 Intake Total 740 925 Output Total 1540 1415 600 Balance -800 -490 -600 Gen: a&O x 3 Heent: eomi Neck: line R neck Chest: cta b CV: rrr ABd soft nt/nd Ext: pulse 2+, no edema Psych: brighter affect - Pending Discharge Pending Discharge Within 48 Hours: Yes Pending Discharge Date: 03/15/17 Pending Discharge Time: 11:00 ICD10 Worksheet Patient Problems: Problems Problem Status Onset Hyponatremia Acute Hypokalemia Acute
[2017-03-13 12:47] LABS: ANION GAP 8 mEq/L (8-16); CALCIUM 8.7 mg/dL (8.5-10.4); CARBON DIOXIDE 24 mEq/l (22-31); CHLORIDE 89 mEq/L (97-110); CREATININE 0.6 mg/dL (0.6-1.0); GLOMERULAR FILTRATION RATE > 60; GLUCOSE 91 mg/dL (70-100); POTASSIUM 4.1 mEq/L (3.5-5.2); SODIUM 121 mEq/L (134-144)
--- NOTE | 2017-03-13 13:06 | PDINTPN ---
Asset Availability Leader Progress Note Assessment/Plan: Assessment: Hyponatremia: Likely due to thiazide and NV. Correcting with fluid restriction. Hypokalemia: Corrected. HTN: Well controlled with Losartan. Microcytic anemia. Plan: Check iron studies. Follow Na closely, monitor BP, K+ 03/13/17 13:06 Subjective: Feels a bit better, more oriented. Strength is a bit improved. Appetite is good. Denies pain. Objective: Vital Signs Temp Pulse Resp BP Pulse Ox 36.3 C 64 14 82/66 L 98 03/13/17 06:00 03/13/17 12:00 03/13/17 12:00 03/13/17 12:00 03/13/17 12:00 Laboratory Results 03/13/17 12:24 03/12/17 03/13/17 03/14/17 05:59 05:59 05:59 Intake Total 740 925 Output Total 1540 1415 600 Balance -800 -490 -600 Physical Exam - Physical Exam General Appearance: alert, no apparent distress EENT: normal ENT inspection Neck: normal inspection Respiratory: lungs clear, normal breath sounds Cardiac/Chest: normal peripheral pulses, regular rate, rhythm Abdomen: normal bowel sounds, non-tender Skin: normal color, warm/dry Extremities: normal inspection Neuro/Psych: alert, normal mood/affect, oriented x 3 ICD10 Worksheet Patient Problems: Problems Problem Status Onset Hypokalemia Acute Hyponatremia Acute
[2017-03-13 14:45] LABS: ANION GAP 8 mEq/L (8-16); CALCIUM 8.6 mg/dL (8.5-10.4); CARBON DIOXIDE 24 mEq/l (22-31); CHLORIDE 89 mEq/L (97-110); CREATININE 0.7 mg/dL (0.6-1.0); GLOMERULAR FILTRATION RATE > 60; GLUCOSE 103 mg/dL (70-100); SODIUM 121 mEq/L (134-144)
[2017-03-13 16:28] LABS: ANION GAP 8 mEq/L (8-16); CALCIUM 8.7 mg/dL (8.5-10.4); CARBON DIOXIDE 23 mEq/l (22-31); CHLORIDE 88 mEq/L (97-110); CREATININE 0.6 mg/dL (0.6-1.0); GLOMERULAR FILTRATION RATE > 60; GLUCOSE 86 mg/dL (70-100); POTASSIUM 4.4 mEq/L (3.5-5.2)
[2017-03-13 16:33] LABS: SODIUM 119 mEq/L (134-144)
[2017-03-13] MEDS ORDERED: ALTEPLASE 2 MG VIAL IVP PRN (17:33)
[2017-03-13 18:54] LABS: ANION GAP 7 mEq/L (8-16); CALCIUM 8.8 mg/dL (8.5-10.4); CARBON DIOXIDE 24 mEq/l (22-31); CHLORIDE 87 mEq/L (97-110); CREATININE 0.6 mg/dL (0.6-1.0); GLOMERULAR FILTRATION RATE > 60; GLUCOSE 91 mg/dL (70-100); POTASSIUM 4.2 mEq/L (3.5-5.2)
[2017-03-13 18:59] LABS: SODIUM 118 mEq/L (134-144)
[2017-03-13] MEDS ORDERED: SODIUM Cl 3% 30 ML IV ONE (19:30)
[2017-03-13] MEDS: ASPIRIN 81 MG CHEWABLE TAB PO SCH (21:08)
[2017-03-13] MEDS: LORazepam 0.5 MG TAB PO PRN (21:09)
[2017-03-13 22:27] LABS: ANION GAP 5 mEq/L (8-16); CALCIUM 8.6 mg/dL (8.5-10.4); CARBON DIOXIDE 25 mEq/l (22-31); CHLORIDE 87 mEq/L (97-110); CREATININE 0.6 mg/dL (0.6-1.0); GLOMERULAR FILTRATION RATE > 60; GLUCOSE 103 mg/dL (70-100)
[2017-03-13 22:34] LABS: SODIUM 117 mEq/L (134-144)
[2017-03-13] MEDS ORDERED: SODIUM CL 3% IV ONE (23:00)
[2017-03-13] MEDS ORDERED: CONTAINER EMPTY IV ONE (23:00)
[2017-03-14 01:38] LABS: ANION GAP 5 mEq/L (8-16); CALCIUM 8.4 mg/dL (8.5-10.4); CARBON DIOXIDE 25 mEq/l (22-31); CHLORIDE 88 mEq/L (97-110); CREATININE 0.6 mg/dL (0.6-1.0); GLOMERULAR FILTRATION RATE > 60; GLUCOSE 92 mg/dL (70-100)
[2017-03-14 04:13] LABS: ANION GAP 6 mEq/L (8-16); CALCIUM 8.3 mg/dL (8.5-10.4); CARBON DIOXIDE 24 mEq/l (22-31); CHLORIDE 89 mEq/L (97-110); CREATININE 0.5 mg/dL (0.6-1.0); GLOMERULAR FILTRATION RATE > 60; GLUCOSE 84 mg/dL (70-100); POTASSIUM 3.9 mEq/L (3.5-5.2)
[2017-03-14 04:17] LABS: SODIUM 119 mEq/L (134-144)
[2017-03-14 04:19] LABS: % IMMATURE GRANULYOCYTES 0.2 % (0.0-1.1); ABSOLUTE IMMATURE GRANULOCYTES 0.01 10^3/uL (0.00-0.10); ADD DIFF? NO; ADD MORPH? NO; ADD SCAN? NO; ATYPICAL LYMPHOCYTE FLAG 0 (0-99); FRAGMENT RBC FLAG 0 (0-99); HEMATOCRIT 29.9 % (38.0-47.0); HEMOGLOBIN 10.8 g/dL (12.6-16.3); LEFT SHIFT FLG 0 (0-99); LIPEMIA HEMOLYSIS FLAG 90 (0-99); MEAN CELL HEMOGLOBIN 30.8 pg (27.9-34.1); MEAN CELL HEMOGLOBIN CONCENTR. 36.1 g/dL (32.4-36.7); MEAN CELL VOLUME 85.2 fL (81.5-99.8); MEAN PLATELET VOLUME 10.1 fL (8.7-11.7); PLATELET CLUMPS FLAG 0 (0-99); PLATELET COUNT 215 10^3/uL (150-400); RED BLOOD CELL COUNT 3.51 10^6/uL (4.18-5.33); RED CELL DISTRIBUTION WIDTH 11.6 % (11.5-15.2)
[2017-03-14] MEDS: CEPACOL LOZENGE PO PRN ×2 (05:57→20:45)
[2017-03-14 06:39] LABS: ANION GAP 7 mEq/L (8-16); CALCIUM 8.3 mg/dL (8.5-10.4); CARBON DIOXIDE 24 mEq/l (22-31); CHLORIDE 90 mEq/L (97-110); CREATININE 0.5 mg/dL (0.6-1.0); GLOMERULAR FILTRATION RATE > 60; GLUCOSE 84 mg/dL (70-100); SODIUM 121 mEq/L (134-144)
[2017-03-14 06:48] LABS: % SATURATION 23 % (20-55); TOTAL IRON BINDING CAPACITY 278 ug/dL (260-490)
[2017-03-14] MEDS ORDERED: POTASSIUM CL 20 MEQ/15 ML UDCUP PO ONE (07:00)
[2017-03-14 07:13] LABS: FERRITIN - BCH 77.5 ng/mL (6.2-264.0)
[2017-03-14] MEDS: SENNOSIDES/DOCUSATE SODIUM TAB PO SCH ×2 (07:15→20:16)
[2017-03-14 07:43] LABS: SODIUM 118 mEq/L (134-144)
[2017-03-14] MEDS ORDERED: ESTRADIOL TD SCH (08:00)
[2017-03-14] MEDS ORDERED: NORETHINDRONE ACET TD SCH (08:00)
[2017-03-14 08:30] LABS: ANION GAP 8 mEq/L (8-16); CALCIUM 8.7 mg/dL (8.5-10.4); CARBON DIOXIDE 23 mEq/l (22-31); CHLORIDE 91 mEq/L (97-110); CREATININE 0.6 mg/dL (0.6-1.0); GLOMERULAR FILTRATION RATE > 60; GLUCOSE 94 mg/dL (70-100); POTASSIUM 4.7 mEq/L (3.5-5.2); SODIUM 122 mEq/L (134-144)
--- NOTE | 2017-03-14 09:06 | SOAPPROG ---
SOAP Progress Note Assessment/Plan: Assessment: Plan: 03/11/17 00:54 Hyponatremia: Has received 1L NS with mild improvement in Na to 105. Currently awaiting urinary electrolytes prior to further intervention. Etiology possibly a combination of diuretic use, poor intake, vomiting. Appreciate nephrology input. Hypokalemia: EKG ok. Awaiting Mg level. Will likely need to replace both. Hypertension: losartan held by nephrology. On prn hydralazine. DVT prophylaxis: enoxaparin 30mg sq daily 03/11/17 00:58 03/11/17 12:12 Hyponatremia: improving slowly. Appreciate nephology input. Now on fluid restriction. Hypokalemia: replacing Hypertension: losartan resumed by nephrology Abdominal discomfort: better for now. Noted some gastric wall thickening on CT scan. May need to look further at this if she continues to experience nausea when she tries to eat. Has been having some abdominal discomfort for 2-3 months prior to onset of current sx. Anxiety: would like lorazepam available on as needed basis as it helped significantly DVT prophylaxis: continue enoxaparin 03/14/17 09:03 Hyponatremia: continues to correct slowly. Still needed frequent monitoring, so will continue in ICU today. Per pt's , is on full fluid restriction until seen by renal today. Appreciate nephrology input. Hypokalemia: resolved Hypertension: Well controlled on losartan. Anemia: Fe studies normal. Will continue to follow. On enoxarin for DVT prophylaxis--no evidence of bleeding. Dispo: remain in ICU today unless okayed by renal to transfer out. Encouraged to ambulate as tolerated. 03/14/17 09:07 Subjective: Feeling much better. Per , she is clearer mentally than she has been in months. Appetite good. No further nausea. Did feel a little lightheaded when up to the BR this morning. Walking around unit a couple of times daily. Objective: Vital Signs Temp Pulse Resp BP Pulse Ox 36.4 C 67 18 128/57 H 97 03/14/17 07:42 03/14/17 08:36 03/14/17 08:36 03/14/17 08:36 03/14/17 08:36 Laboratory Results 03/14/17 04:06 03/14/17 08:00 09/17/17 09/18/17 09/19/17 05:59 05:59 05:59 Intake Total 925 1171 Output Total 1415 1000 Balance -490 171 General: sleeping but aroused easily Lungs: clear bilaterally CV: RRR without murmur Abdomen: +bowel sounds, soft, NT Extremities: no edema ICD10 Worksheet Patient Problems: Problems Problem Status Onset Hypokalemia Acute Hyponatremia Acute
[2017-03-14] MEDS: ENOXAPARIN 40 MG/0.4 ML SYR SC SCH (09:18)
[2017-03-14] MEDS: LOSARTAN POTASSIUM 25 MG TAB PO SCH (09:32)
--- NOTE | 2017-03-14 09:49 | SOAPPROG ---
SOAP Progress Note Assessment/Plan: Assessment/Plan: Hyponatremia: initial labs looked like SIADH but then urine started to look more dilute, seemed to be appropriately trying to dilute urine and hold on to sodium. Likely her hyponatremia is caused by thiazide diuretics. Her sodium has been appropriately correcting slowly and is 122 this am, at goal. Want to continue to increase by 6 daily. - Will continue to monitor sodium q4h. - Will continue 1000ml fluid restriction. - Goal sodium is 128 by tomorrow am. - Pt on regular diet, no salt tabs needed. - Will check am cortisol but doubt this is cause. Hypokalemia: resolved, K is 4.7, on losartan, will continue to monitor. HTN: BP seems a little lower yesterday, will decrease losartan to 12.5mg daily and continue to monitor. Subjective: No acute events overnight. Pt states she is feeling better, has no complaints except that she feels tired from not sleeping well here. Objective: Vital Signs Temp Pulse Resp BP Pulse Ox 36.4 C 67 18 128/57 H 97 03/14/17 07:42 03/14/17 08:36 03/14/17 08:36 03/14/17 09:32 03/14/17 08:36 Laboratory Results 03/14/17 04:06 03/14/17 08:00 03/13/17 03/14/17 03/15/17 05:59 05:59 05:59 Intake Total 925 1171 Output Total 1415 1000 Balance -490 171 General: alert and oriented, no acute distress Eyes; EOMI, PERRL OP: Clear CV: RRR Resp: nonlabored respirations, CTAB Abd; Soft, NT Ext: no edema Neuro: CN II-XII grossly intact, no asterixis Psych: cooperative, appropriate mood and affect ICD10 Worksheet Patient Problems: Problems Problem Status Onset Hypokalemia Acute Hyponatremia Acute
[2017-03-14 12:49] LABS: ANION GAP 9 mEq/L (8-16); CALCIUM 8.9 mg/dL (8.5-10.4); CARBON DIOXIDE 24 mEq/l (22-31); CHLORIDE 92 mEq/L (97-110); CREATININE 0.6 mg/dL (0.6-1.0); GLOMERULAR FILTRATION RATE > 60; GLUCOSE 102 mg/dL (70-100); POTASSIUM 4.3 mEq/L (3.5-5.2); SODIUM 125 mEq/L (134-144)
--- NOTE | 2017-03-14 13:45 | ASMTCMCOM ---
CM Note CM Note Notes: Patient's hyponatremia slowly correcting, anticipate one more day in ICU before transfer to floor. Patient is feeling well, and according to , mentating better than she has in months. Tentative CM discharge plan is home with family. Date Signed: 03/14/2017 01:44 PM Electronically Signed By:Irina Anaya RN
[2017-03-14 16:13] LABS: ANION GAP 4 mEq/L (8-16); CALCIUM 8.6 mg/dL (8.5-10.4); CARBON DIOXIDE 25 mEq/l (22-31); CHLORIDE 93 mEq/L (97-110); CREATININE 0.5 mg/dL (0.6-1.0); GLOMERULAR FILTRATION RATE > 60; GLUCOSE 90 mg/dL (70-100); POTASSIUM 4.2 mEq/L (3.5-5.2); SODIUM 122 mEq/L (134-144)
[2017-03-14] MEDS: LORazepam 0.5 MG TAB PO PRN (20:01)
[2017-03-14] MEDS: ASPIRIN 81 MG CHEWABLE TAB PO SCH (20:01)
[2017-03-14 20:49] LABS: ANION GAP 9 mEq/L (8-16); CALCIUM 8.9 mg/dL (8.5-10.4); CARBON DIOXIDE 24 mEq/l (22-31); CHLORIDE 94 mEq/L (97-110); CREATININE 0.6 mg/dL (0.6-1.0); GLOMERULAR FILTRATION RATE > 60; GLUCOSE 115 mg/dL (70-100); POTASSIUM 3.9 mEq/L (3.5-5.2); SODIUM 127 mEq/L (134-144)
[2017-03-15 00:13] LABS: ANION GAP 6 mEq/L (8-16); CALCIUM 8.7 mg/dL (8.5-10.4); CARBON DIOXIDE 25 mEq/l (22-31); CHLORIDE 96 mEq/L (97-110); CREATININE 0.6 mg/dL (0.6-1.0); GLOMERULAR FILTRATION RATE > 60; GLUCOSE 83 mg/dL (70-100); POTASSIUM 4.1 mEq/L (3.5-5.2); SODIUM 127 mEq/L (134-144)
[2017-03-15 04:46] LABS: ANION GAP 8 mEq/L (8-16); CALCIUM 8.7 mg/dL (8.5-10.4); CARBON DIOXIDE 24 mEq/l (22-31); CHLORIDE 96 mEq/L (97-110); CREATININE 0.6 mg/dL (0.6-1.0); GLOMERULAR FILTRATION RATE > 60; GLUCOSE 79 mg/dL (70-100); POTASSIUM 4.3 mEq/L (3.5-5.2); SODIUM 128 mEq/L (134-144)
[2017-03-15 08:24] VITALS: BP 133/65; PULSE 63; RESP 18; TEMP 97.7; O2SAT 97
[2017-03-15] MEDS: LOSARTAN POTASSIUM 25 MG TAB PO SCH (08:37)
[2017-03-15] MEDS: ENOXAPARIN 40 MG/0.4 ML SYR SC SCH (08:38)
[2017-03-15] MEDS ORDERED: LOSARTAN POTASSIUM 25 MG TAB PO SCH (08:45)
[2017-03-15 09:11] LABS: ANION GAP 7 mEq/L (8-16); CALCIUM 9.2 mg/dL (8.5-10.4); CARBON DIOXIDE 25 mEq/l (22-31); CHLORIDE 97 mEq/L (97-110); CREATININE 0.7 mg/dL (0.6-1.0); GLOMERULAR FILTRATION RATE > 60; GLUCOSE 72 mg/dL (70-100); POTASSIUM 4.1 mEq/L (3.5-5.2); SODIUM 129 mEq/L (134-144)
[2017-03-15 09:41] LABS: CORTISOL-AM 12.8 ug/dL (4.5-22.7)
--- NOTE | 2017-03-15 10:39 | SOAPPROG ---
SOAP Progress Note Assessment/Plan: Assessment/Plan: Hyponatremia: initial labs looked like SIADH but then urine started to look more dilute, seemed to be appropriately trying to dilute urine and hold on to sodium. Likely her hyponatremia is caused by thiazide diuretics. Her sodium has been appropriately correcting slowly and is 128 this am, at goal. - Pt being discharged. - Pt has appointment for lab work as well as PCP visit tomorrow. - We will f/u in nephrology clinic as well. - Recommended 1500ml fluid restriction for now. - Pt on regular diet, no salt tabs needed. Hypokalemia: resolved, K is 4.1, on losartan, will continue to monitor. HTN: BP contolled on losartan 12.5mg daily, further management per pcp. Subjective: No acute events overnight. Pt feeling well and excited to go home today. Objective: Vital Signs Temp Pulse Resp BP Pulse Ox 36.5 C 63 18 133/65 H 97 03/15/17 08:21 03/15/17 08:21 03/15/17 08:21 03/15/17 08:21 03/15/17 08:21 Laboratory Results 03/14/17 04:06 03/15/17 08:45 03/14/17 03/15/17 03/16/17 05:59 05:59 05:59 Intake Total 1171 1700 Output Total 1000 600 Balance 171 1100 General: alert and oriented, no acute distress Eyes; EOMI, PERRL OP: Clear CV: RRR Resp: nonlabored respirations on RA Abd: Soft, NT Ext: no edema BLE Neuro: CN II-XII grossly intact, no asterixis Psych: cooperative, appropriate mood and affect ICD10 Worksheet Patient Problems: Problems Problem Status Onset Hypokalemia Acute Hyponatremia Acute
--- NOTE | 2017-03-18 13:31 | GDS ---
[f rep st] DISCHARGE SUMMARY ADMISSION DIAGNOSIS: Profound hyponatremia with metabolic encephalopathy. DISCHARGE DIAGNOSIS: Profound hyponatremia with metabolic encephalopathy. PROCEDURE: Slow moravian of serum sodium. COMPLICATIONS: None. HOSPITAL COURSE: Patient was admitted with serum sodium of 102, dizziness, and some confusion. Her sodium was slowly corrected initially with saline, and subsequent with fluid restrictions. She was f ollowed closely by Renal. She was also seen by the scientific process operator. Her sodium went up by no more than 6 mEq/L every 24 hours, and her symptoms gradually improved over the course of the hospitalization an d the day of discharge she was doing substantially better. Her discharge sodium was 129. Potassium is 4.1. When she presented, she was also profoundly hypokalemic with a serum potassium of 2.0. MEDICATIONS AT TIME OF DISCHARGE: Losartan 25 mg daily, aspirin 81 mg daily, omeprazole 20 mg daily, CombiPatch 0.05-0.14, change every 3 days. She had previously been on hydrochlorothiazide, and befo re that chlorthalidone, and we will make a point of never putting her on a thiazide diuretic again be cause of this fairly profound hyponatremia reaction. She will follow up with Dr. Bedoya in 1 day. /[id number]/MODL
== END 2017-03-15 11:37 | disposition home or self-care (01) | DRG 641 ==
LOC: UNDOADMOB 22:26 → INTOOBSV 03-11 00:01 → OBSVTOIN 03-11 00:01 → F2N 03-11 00:05 → OBSVTOIN 03-11 00:11 → F2N 03-11 00:11
PROVIDERS: ADMIT Student in an Organized Health Care Education/Training Program; ATTEND Internal Medicine
DX: E87.1 Hypo-osmolality and hyponatremia (principal); E87.6 Hypokalemia; I10 Essential (primary) hypertension; E21.3 Hyperparathyroidism, unspecified; Z96.659 Presence of unspecified artificial knee joint; Z87.820 Personal history of traumatic brain injury
CPT/HCPCS: 82947-QW; 96365; J1170; J1650; J2405; J2597; J2765; Q9967

== ENCOUNTER → 2017-09-07 | Outpatient (CLI) | payer OTHER, MEDICARE | LOC: FIMAGING 15:15 | PROVIDERS: ATTEND Internal Medicine | DX: Z12.31 Encounter for screening mammogram for malignant neoplasm of breast (principal) ==

== ENCOUNTER → 2018-09-11 | Outpatient (CLI) | payer OTHER, MEDICARE | LOC: FIMAGING 13:54 | PROVIDERS: ATTEND Internal Medicine | DX: Z12.31 Encounter for screening mammogram for malignant neoplasm of breast (principal) ==